=== PATIENT | male | born 1995 | race Two or more races ===

== ENCOUNTER 2020-04-10 10:30 | Emergency (ER) | payer BC ==
[~2020-04-10] VITALS: Ht 170.2 cm; Wt 95.0 kg
[2020-04-10] MEDS ORDERED: acetaminophen 325mg tablet PO ONE (10:50)
[2020-04-10] MEDS ORDERED: ibuprofen tablet 400 MG TABLET PO ONE (10:50)
[2020-04-10] MEDS ORDERED: AMOX500C2 PO (11:27)
[2020-04-10 11:49] VITALS: BP 133/92
== END 2020-04-10 18:20 | disposition home or self-care (01) ==
LOC: ER 10:30
DX: S52.611A Displaced fracture of right ulna styloid process, initial encounter for closed fracture (principal); S60.410A Abrasion of right index finger, initial encounter; F14.90 Cocaine use, unspecified, uncomplicated; Z72.89 Other problems related to lifestyle; Z79.2 Long term (current) use of antibiotics; Y04.2XXA Assault by strike against or bumped into by another person, initial encounter; Y92.89 Other specified places as the place of occurrence of the external cause; Y99.8 Other external cause status
CPT/HCPCS: 29125; 73110; 73130; 99284

== ENCOUNTER 2020-12-14 13:16 | Emergency (ER) | payer BC ==
[~2020-12-14] VITALS: Ht 170.2 cm; Wt 88.6 kg
[2020-12-14 13:24] VITALS: BP 129/86
== END 2020-12-14 14:11 | disposition home or self-care (01) ==
LOC: ER 13:17
DX: R07.81 Pleurodynia (principal); R06.02 Shortness of breath; F14.90 Cocaine use, unspecified, uncomplicated; F32.9 Major depressive disorder, single episode, unspecified; Z72.89 Other problems related to lifestyle
CPT/HCPCS: 71046; 99283

== ENCOUNTER → 2021-01-30 | Emergency (ER) | payer SELFPAY ==
[~2021-01-30] VITALS: Ht 188 cm; Wt 88.6 kg
[~2021-01-30] MED LIST: TETanus/Pertussis (Acell)/Diphther VAC/PF (Tdap-Adult) 0.5ml syringe IMVAC ONE
[2021-01-30 11:55] VITALS: BP 120/69
== END | disposition home or self-care (01) ==
LOC: ER 09:59
DX: S61.412A Laceration without foreign body of left hand, initial encounter (principal); F14.90 Cocaine use, unspecified, uncomplicated; Z72.89 Other problems related to lifestyle; W26.8XXA Contact with other sharp object(s), not elsewhere classified, initial encounter; Y93.E9 Activity, other interior property and clothing maintenance; Y92.89 Other specified places as the place of occurrence of the external cause; Y99.8 Other external cause status
CPT/HCPCS: 12002; 90471; 90715; 99283

== ENCOUNTER → 2021-02-06 | Emergency (ER) | payer SELFPAY ==
[~2021-02-06] VITALS: Ht 170.2 cm; Wt 88.6 kg
== END | disposition home or self-care (01) ==
LOC: ER 12:51
DX: S61.412D Laceration without foreign body of left hand, subsequent encounter (principal); F14.90 Cocaine use, unspecified, uncomplicated; Z48.02 Encounter for removal of sutures; Z79.899 Other long term (current) drug therapy; Z72.89 Other problems related to lifestyle; X58.XXXD Exposure to other specified factors, subsequent encounter
CPT/HCPCS: 99281

== ENCOUNTER 2021-11-16 18:32 | Emergency (ER) | payer SELFPAY ==
[~2021-11-16] VITALS: Ht 170.2 cm; Wt 91.0 kg
[2021-11-16] MEDS ORDERED: aspirin 81mg tab.chew PO ONE (19:35)
[2021-11-16 19:49] LABS: BASOPHILS # (AUTO) 0.1 X10'3 (0-0.2); BASOPHILS % (AUTO) 0.7 % (0-1); EOSINOPHILS # (AUTO) 0.1 X10'3 (0-0.9); EOSINOPHILS % (AUTO) 1.2 % (0-6); HEMATOCRIT 41.7 % (42.0-52.0); HEMOGLOBIN 14.3 g/dl (14.0-17.9); LYMPHOCYTES % (AUTO) 22.8 % (21-51); MEAN CORPUSCULAR HEMOGLOBIN 30.4 PG (27.0-31.0); MEAN CORPUSCULAR HGB CONC 34.4 g/dL (33.0-36.5); MEAN CORPUSCULAR VOLUME 88.4 FL (78-98); MEAN PLATELET VOLUME 7.7 FL (7.4-10.4); MONOCYTES # (AUTO) 0.7 X10'3 (0-0.9); MONOCYTES % (AUTO) 8.4 % (2-12); NEUTROPHILS # (AUTO) 5.7 X10'3 (1.8-7.7); NEUTROPHILS % (AUTO) 66.9 % (42-75); PLATELET COUNT 313 X10'3 (140-440); RED BLOOD COUNT 4.71 X10'6 (4.70-6.10); RED CELL DISTRIBUTION WIDTH 12.9 % (11.5-14.5); WHITE BLOOD COUNT 8.6 X10'3 (4.5-11.0)
[2021-11-16 20:03] LABS: D-DIMER 0.32 MG/L FEU (0-0.50)
[2021-11-16 20:06] LABS: ALANINE AMINOTRANSFERASE 55 U/L (12-78); ALBUMIN 3.7 G/DL (3.4-5.0); ALBUMIN/GLOBULIN RATIO 1.1 (1.1-1.5); ALKALINE PHOSPHATASE 78 IU/L (46-116); ANION GAP 8 (8-16); ASPARTATE AMINO TRANSFERASE 27 U/L (10-37); BILIRUBIN,TOTAL 0.3 MG/DL (0.1-1.0); BLOOD UREA NITROGEN 10 MG/DL (7-18); BUN/CREATININE RATIO 10.9 (5.4-32.0); CALCIUM 8.3 MG/DL (8.5-10.1); CHLORIDE 105 MMOL/L (99-107); CREATININE 0.92 MG/DL (0.60-1.10); GLUCOSE 100 MG/DL (70-104); POTASSIUM 3.8 MMOL/L (3.5-5.1); SODIUM 141 MMOL/L (135-145); TOTAL CARBON DIOXIDE 27.7 MMOL/L (24-32); TOTAL PROTEIN 7.1 G/DL (6.4-8.2); eGFR > 90 ML/MIN
[2021-11-16 20:14] LABS: LIPASE 64 U/L (73-393); MAGNESIUM 1.8 MG/DL (1.5-2.4)
[2021-11-16 23:30] VITALS: BP 127/75
== END 2021-11-16 23:30 | disposition home or self-care (01) ==
LOC: ER 18:32
DX: R07.89 Other chest pain (principal); F14.10 Cocaine abuse, uncomplicated
CPT/HCPCS: 36415; 71045; 80053; 83690; 83735; 83880; 84484; 85025; 85379; 93005; 99285

== ENCOUNTER 2022-04-04 17:17 | Emergency (ER) | payer SELFPAY ==
[~2022-04-04] VITALS: Ht 170.2 cm; Wt 90.0 kg
[2022-04-04] MEDS ORDERED: gabapentin 300mg capsule PO ONE (20:40)
[2022-04-04] MEDS ORDERED: LORazepam 1 MG tablet PO ONE (20:40)
[2022-04-04] MEDS ORDERED: ondansetron/PF 4mg/2ml inj IV ONE (20:40)
[2022-04-04] MEDS ORDERED: normal saline 1000ML IV soln IVB ONE (20:40)
[2022-04-04] MEDS ORDERED: LORazepam 0.5 MG tablet PO ONE (20:40)
[2022-04-04] MEDS ORDERED: GABA-534 PO (21:29)
[2022-04-04] MEDS ORDERED: ONDA4TAB12 PO (21:29)
[2022-04-04 22:13] VITALS: BP 132/84
== END 2022-04-04 22:14 | disposition home or self-care (01) ==
LOC: ER 17:18
DX: F10.930 Alcohol use, unspecified with withdrawal, uncomplicated (principal); R11.2 Nausea with vomiting, unspecified; R13.10 Dysphagia, unspecified; M79.10 Myalgia, unspecified site; F11.10 Opioid abuse, uncomplicated
CPT/HCPCS: 96361; 96374; 99284; J2405; J7030; 99283